=== PATIENT | male | born 1995 | race Two or more races ===

== ENCOUNTER 2017-11-11 22:21 | Emergency (ER) | payer MEDICAID ==
[~2017-11-11] VITALS: Ht 172.7 cm; Wt 64.0 kg
[2017-11-11 22:45] VITALS: BP 111/61
== END 2017-11-12 00:49 | disposition left against medical advice (07) ==
LOC: ER 22:21
DX: M79.601 Pain in right arm (principal); Z53.21 Procedure and treatment not carried out due to patient leaving prior to being seen by health care provider